=== PATIENT | female | born 1995 | race African-American/Black ===

== ENCOUNTER 2023-03-26 13:56 | Emergency (ER) | payer SELFPAY ==
[2023-03-26 14:11] VITALS: BP 100/76; PULSE 82; RESP 16; TEMP 36.8; O2SAT 99
--- NOTE | 2023-03-26 14:22 | ED.GENADULT ---
HPI - General Adult General Chief complaint: Headache Stated complaint: HEADACHE Source: patient, RN notes reviewed and old records reviewed Mode of arrival: ambulatory Limitations: no limitations History of Present Illness HPI narrative: 19-year-old female presents to [facility] with complaints frontal headache this started 1 week ago. Patient states he is taking Tylenol with no relief. Patient states headache is constant. Patient states has slight congestion and thinks might be a sinus infection but states it is not like her typical sinus infection. Patient denies any other symptoms. Related Data Allergies Allergy/AdvReac Type Severity Reaction Status Date / Time No Known Allergies Allergy Verified 03/26/23 14:10 Review of Systems Constitutional: Constitutional: Reports no additional constitutional complaints, Denies body ache(s), Denies chills, Denies fatigue, Denies fever(s) and Reports headache(s) Eyes: Eyes: Reports no additional eye complaints and Denies blurry vision ENT: Reports system reviewed and no additional complaints, except as documented, Denies vertigo, Denies dizziness, Denies ear discharge, Denies otalgia, Denies facial pain, Denies headache(s), Reports nasal congestion, Denies nasal discharge, Denies sinus pain, Denies sinus pressure and Denies sore throat Cardiovascular: Cardiovascular: Reports no additional cardiovascular complaints, Denies chest pain, Denies chest pain at rest, Denies rapid heart rate and Denies dyspnea Respiratory: Respiratory: Reports no additional respiratory complaints, Denies chest congestion, Denies cough, Denies pain on inspiration, Denies pain with cough and Denies dyspnea Gastrointestinal: Gastrointestinal: Denies abdominal pain, Denies diarrhea, Denies nausea and Denies vomiting Integumentary/Breasts: Skin/Breast: Denies rash Neurologic: Reports system reviewed and no additional complaints, except as documented, Denies vertigo, Denies dizziness and Reports headache(s) Endocrine: Endocrine: Denies fatigue PMFSH Comments At the time of my signature, I reviewed and agree with the nursing past medical, surgical, social, and family history. There is no relevant family history pertinent to the patient complaint. Exam Const: General: cooperative, healthy appearing, no acute distress and well nourished Nutritional Appearance: well nourished Orientation/consciousness: patient oriented x3 Limitations: no limitations HENMT: Head: normal to inspection and normocephalic Ears: external ears normal, TM's normal bilaterally, mastoids normal and Abnormal EAC present Face/Nose/Sinus: Normal external nose present, No nasal polyps present, Normal nasal mucous membranes and turbinates present, No nasal discharge present and normal facial exam Face and sinus: normal facial exam and sinus tenderness frontal Mouth: Yes Normal oral and palatal mucosa present, Yes oropharynx normal and Yes moist mucous membranes Throat: tonsils normal, uvula midline and no uvular edema Eyes: General: appearance normal, both eyes and all related structures Sclera: sclerae normal Pupils: Equal, round and reactive pupils present Resp: Effort & Inspection: normal respiratory effort, able to speak in complete sentences, no audible wheezes, no cough, no respiratory distress and no retractions Auscultation: clear to auscultation bilaterally, no crackles, no rales, no rhonchi and no wheezes Cardio: Rate: regular rate Rhythm: regular rhythm Skin: General skin exam: normal color and no rashes or lesions noted Neuro: General: patient oriented x3 Cranial nerves: Yes CN's II-XII intact bilaterally and Yes Equal, round and reactive pupils present Cognition (Neuro): normal cognition Speech: normal speech Gait exam (Neuro): Normal gait present Motor exam (neuro): 5/5 motor strength present throughout Sensory Exam: normal sensation Psych: Appearance: grossly normal Mental Status: mental status grossly normal Speec
== END 2023-03-26 14:59 | disposition home or self-care (01) ==
PROVIDERS: Emergency Provider Registered Nurse
DX: J01.10 Acute frontal sinusitis, unspecified (principal); G44.89 Other headache syndrome; Z20.822 Contact with and (suspected) exposure to COVID-19
CPT/HCPCS: 87426; 87804; 99213; G0463

== ENCOUNTER 2023-11-03 03:06 | Emergency (ER) | payer SELFPAY ==
--- NOTE | ~2023-11-03 | XR_ITS ---
Portable chest x-ray Comparison: None Clinical History: Cough Findings: Lungs are clear, without focal consolidation or pleural effusion. Cardiomediastinal silho uette is unremarkable. Bones and soft tissues are unremarkable. Impression: Normal chest. Reviewed, dictated and finalized at location M. Impression: Normal chest.
[2023-11-03 03:18] VITALS: BP 125/81; PULSE 94; RESP 16; TEMP 36.7; O2SAT 99
[2023-11-03 03:21] VITALS: O2SAT 99
--- NOTE | 2023-11-03 03:38 | ED.GENADULT ---
HPI - General Adult General Chief complaint: Upper Respiratory Infection Stated complaint: i've been coughing bad Time Seen by Provider: 11/03/23 03:08 History of Present Illness HPI narrative: Patient is 28-year-old female who presents to the emergency department this morning complaining of a cough that she has had for the past 3 days. States that she has been taking Tylenol with cough suppressant with no relief. Patient admits that the cough is dry and nonproductive but states that it is keeping her up at night. Denies any fevers or chills at home and denies any sick contacts. Denies any chest pain admits to mild shortness of breath. No additional symptoms or concerns at this time. Related Data Allergies Allergy/AdvReac Type Severity Reaction Status Date / Time No Known Allergies Allergy Verified 03/26/23 14:10 Review of Systems Review of Systems: All systems are reviewed and are negative unless stated otherwise in the HPI. Exam Narrative: General: Alert, awake, afebrile, in no acute distress. HEENT: PERRL, no rhinorrhea, no post nasal drip, oropharynx clear. Cardiovascular: Regular rate and rhythm, no murmurs, rubs or gallops, no peripheral edema. Respiratory: Clear to auscultation bilaterally, no tachypnea, no wheezing, no rhonchi, no rubs, no respiratory distress. Abdomen: Soft, nontender, nondistended, no rebound, no guarding, no peritoneal signs. Musculoskeletal: No joint swelling or deformity, normal muscle tone. Skin: No rashes or petechia, no signs of infection. Neurological: Alert and oriented to person, place, and time. Follows all commands. No focal deficits, speech is clear and fluent. Course Vital Signs Vital signs: Vital Signs Temperature 98.0 F 11/03/23 03:18 Pulse Rate 94 11/03/23 03:18 Respiratory Rate 16 11/03/23 03:18 Blood Pressure 125/81 11/03/23 03:18 Pulse Oximetry 99 11/03/23 03:18 Temperature 98.0 F 11/03/23 03:18 Pulse Rate 94 11/03/23 03:18 Respiratory Rate 16 11/03/23 03:18 Blood Pressure 125/81 11/03/23 03:18 Pulse Oximetry 99 11/03/23 03:21 Oxygen Delivery Room Air 11/03/23 03:21 Medical Decision Making MDM Narrative Medical decision making narrative: The patient was evaluated by myself in the emergency department. History is obtained from patient who is an independent historian and physical exam was performed. External medical records were reviewed at this time. Viral swabs obtained noted to be negative. Patient was administered 200 mg of oral Tessalon Perles for cough. Imaging studies obtained included CXR which was independently interpreted by me revealing no acute process, which is pending final radiology interpretation. Differential diagnosis considerations include acute viral syndrome, infectious process such as pneumonia. Comorbidities impacting this visit include none. I have evaluated and discussed social determinants of health with the patient that could potentially impact subsequent diagnosis and treatment plans. On repeat assessment of the patient, reevaluation revealed that the patient is doing well and is in no acute distress. Patient symptoms have improved since she arrived to our emergency department. Repeat vital signs were all reviewed and noted to be stable. Differential diagnosis and treatment plan were discussed with the patient at bedside. Patient agrees with discussion and after shared medical decision making agrees with discharge. All questions were answered to the patient's satisfaction. Patient will follow up with her PCP in 3-5 days. Patient was provided with strict return precautions and instructed to return to the emergency department if any new or worsening symptoms develop. The patient was discharged in stable condition. Vital Signs Vital Signs: Vital Signs Temperature 98.0 F 11/03/23 03:18 Pulse Rate 94 11/03/23 03:18 Respiratory Rate 16 11/03/23 03:18 Blood Pressure 125/81
[2023-11-03] MEDS: BENZONATATE 100 MG CAPSULE 200 MG PO (03:47)
[2023-11-03 04:03] LABS: Influenza A QL RT-PCR Negative (Negative); Influenza B QL RT-PCR Negative (Negative); SARS-CoV-2 RNA PCR Negative (Negative)
[2023-11-03 04:32] VITALS: BP 101/61; PULSE 72; RESP 15; TEMP 36.3; O2SAT 100
== END 2023-11-03 04:34 | disposition home or self-care (01) ==
PROVIDERS: Emergency Provider Emergency Medicine
DX: J06.9 Acute upper respiratory infection, unspecified (principal); Z20.822 Contact with and (suspected) exposure to COVID-19
CPT/HCPCS: 71045; 87636; 99283; A9270

== ENCOUNTER 2024-02-04 15:08 | Emergency (ER) | payer MEDICAID, SELFPAY ==
--- NOTE | 2024-02-04 15:13 | ED_ITS ---
HPI - Headache General Chief Complaint: Headache Stated Complaint: Headache,tingling sensation in legs, 18 weeks preg Time Seen by Provider: 02/04/24 15:14 Source: patient Mode of arrival: ambulatory Limitations: no limitations History of Present Illness HPI Narrative: Maria Guadalupe is a 28-year-old female patient presenting to the clinic today with complaints of headache behind her eyes, nasal congestion, and tingling sensation the left posterior thigh. Patient is 18 weeks . No known injury. Nasal congestion just started today but headache and thigh tingling started 2 days ago. Denies any abdominal pain, pelvic pain, vaginal discharge, or odor. Denies any urinary symptoms, nausea, or vomiting Related Data Home Medications ?Medication ?Instructions ?Recorded ?Confirmed ?Last Taken ?Type 02/04/24 Unknown History Allergies Allergy/AdvReac Type Severity Reaction Status Date / Time No Known Allergies Allergy Verified 02/04/24 15:21 Review of Systems Review of Systems: Pertinent positives per HPI. Patient denies any fever, chills, rash, visual changes, dizziness, sore throat, shortness of breath, chest pain, palpitations, nausea, vomiting, diarrhea, constipation, abdominal pain, or any urinary issues. PMFSH Comments At the time of my signature, I reviewed and agree with the nursing past medical, surgical, social, and family history. There is no relevant family history pertinent to the patient complaint. Exam Narrative: General: Well-developed, well nourished, in no apparent distress Head: Normocephalic, atraumatic Eyes: Pupils equally round and reactive to light bilaterally, EOM intact, sclera and conjunctive clear, no discharge, lids normal Ears: TMs intact and congested, ear canals clear, no drainage, grossly hearing normal. Nose: Nares patent, clear nasal discharge, no inflammation, no sinus tenderness. Mouth: Oropharynx without lesions or masses, good dentition, MMM. Tongue midline, even rise and fall of uvula Neck: Supple, trachea midline, no enlargement of anterior or posterior cervical nodes, no thyroid masses or goiter palpable. Cardio: Regular rate and rhythm, s1 and s2 normal, no murmur appreciated. Resp: Clear to auscultation bilaterally anteriorly and posteriorly, no rhonchi, rales, wheezing or rubs Musculoskeletal: No deformity, non-tender to palpation, grossly normal range of motion, muscle strength strong and equal, peripheral pulse strong, no edema, no cyanosis, normal gait and station Neuro: Alert and oriented x4 with normal speech, no focal deficits, cranial nerves I through XII intact, muscle strength 5 out of 5, sensation intact bilaterally, negative Romberg test Course Course Emergency Course: Portions of this record may have been created with voice recognition software. Level of Care: Express Care Visit Vital Signs Vital signs: Vital Signs Temperature 37.2 C 02/04/24 15:20 Pulse Rate 107 H 02/04/24 15:20 Respiratory Rate 16 02/04/24 15:20 Blood Pressure 102/70 02/04/24 15:20 Pulse Oximetry 100 02/04/24 15:20 Temperature 37.2 C 02/04/24 15:20 Pulse Rate 107 H 02/04/24 15:20 Respiratory Rate 16 02/04/24 15:20 Blood Pressure 102/70 02/04/24 15:20 Pulse Oximetry 100 02/04/24 15:20 Vital signs reviewed MDM - Headache MDM Narrative Medical decision making narrative: At the time of visit patient is resting comfortably on the exam table. Patient appears to be nontoxic. Labs: Urinalysis shows 2+ protein in 2+ ketones. Patient denies any UTI symptoms. COVID and influenza testing was performed. COVID test was positive. Influenza test was negative. heart tones were 140s Plan: I suspect patient has COVID, protein urea, dehydration, and paresthesia. Prescription for was sent to the pharmacy to cover for a urinary tract infection in with asymptomatic protein urea. Recommend contacting OBGYN for further consult/evaluation of treatment. Supportive measures were discussed with the patient and they voiced understanding discharge instructions and agrees to treatment plan. Return precautions reviewed Differential Diagnosis Differential diagnosis: Likely migraine, tension headache, subarachnoid hemorrhage, headache, meningitis, sinusitis and postconcussion syndrome Lab Data Labs: Lab Results 02/04/24 Range/Units 15:35 POC Urine Color Dark POC Urine Clarity Clear POC Urine pH 6.0 POC Ur Specif [place] 1.030 POC Urine Protein 2+ (Negative) POC Ur Glucose (UA) Negative (Negative) POC Urine Ketones 2+ (Negative) POC Urine Blood Negative (Negative) POC Urine Nitrite Negative (Negative) POC Urine Bilirubin Negative (Negative) POC Urine Urobilinogen 1.0 POC U Leukocyte Esteras Negative (Negative) POC Influenza A Ag Negative (Negative) POC Influenza B Ag Negative (Negative) POC SARS CoV-2 Ag Positive (Negative) Discharge Plan Discharge Clinical Impression: COVID-19, Asymptomatic proteinuria, Paresthesia, Dehydration Patient Disposition: Home, Self-Care Condition: Stable Instructions: Antibiotic Form, Dehydration (ED), Paresthesia (ED), How to Recover from COVID-19 at Home (ED) Additional Instructions: heart tones were 140 in the clinic today COVID testing was positive. Influenza testing was negative. Urinalysis shows 2+ ketones and 2+ protein. Recommend following up with OBGYN next week for [id number] send in prescription for Macrobid. Increase fluids and stay well hydrated Tylenol for pain/fever Flonase and OTC antihistamines as directed Vicks vapor rub to open sinuses Sinus rinses for congestion Cepacol spray, cough drops, throat lozenges, warm tea with honey/lemon, gargle salt water to soothe throat BRAT diet for diarrhea Clear liquids x 24 hours then advance as tolerated for nausea/vomiting Go to the ED if you develop a worsening in your condition- high fever not controlled by Tylenol or Motrin, dehydration, weakness, lethargy, shortness of breath, or chest pain. Follow up with your PCP in 3-5 days if symptoms persist. Approved Medications for Patients Cold and Flu Symptoms --Tylenol (regular or extra Strength) Fever (call if over 101?)--Tylenol (regular or extra Strength) Nasal Drainage/Head Congestion--Chlor-Trimeton, Sudafed, Tavist,Tylenol Sinus Cough--Robitussin, Delsym, Mucinex Sore Throat--Chloraseptic, Cepacol lozenges Allergy Symptoms--Bendryl, Zyrtec, Zyrtec D, Claritin, Claritin D Nausea--Emetrol, Vitamin B6 Tablets, Magnolia, Magnolia Tea, Preggie Pops, B- Suckers Constipation--Milk of Magnesia, Metamucil, Fiberall, Konsyl, Colace (Docusate Sodium) Heartburn--Maalox, Mylanta, TUMS, Prilosec OTC, Zantac, Tagament, Prevacid, Pepcid Diarrhea--Imodium, Kaopectate, Follow BRAT diet: bananas, rice, applesauce, tea/toast Hemorrhoids--Tucks Pads, Anusol, Preparation H, warm sitz baths Patient Language: Indonesian Prescriptions: New nitrofurantoin monohyd/m-cryst [Macrobid] 100 mg capsule 100 mg PO Q12H 5 Days Qty: 10 0RF Rx Instructions: must administer with a meal/food No Action amoxicillin-pot clavulanate 875-125 mg tablet 1 tablet PO Q12H 7 Days Qty: 14 0RF ibuprofen 600 mg tablet 600 mg PO TID PRN (Reason: pain) Qty: 14 0RF Follow-up/Referrals: UNKNOWN,DOCTOR [Primary Care Provider] - Stand Alone Forms: Work/School Release IP Time of Disposition: 15:46 Quality NIHSS Nursing Documentation ED NIHSS nursing documentation: reviewed/agree
[2024-02-04 15:20] VITALS: BP 102/70; PULSE 107; RESP 16; TEMP 37.2; O2SAT 100
[2024-02-04 15:37] LABS: EDCOVIDSCREEN Positive (Negative); EDINFLUASCREEN Negative (Negative); EDINFLUBSCREEN Negative (Negative); EDUAAPPEAR Clear; EDUABILI Negative (Negative); EDUABLOOD Negative (Negative); EDUACOLOR1 Dark; EDUAGLUCOSE Negative (Negative); EDUAKETONE 2+ (Negative); EDUALEUKO Negative (Negative); EDUANITRATE Negative (Negative); EDUAPROTEIN 2+ (Negative)
== END 2024-02-04 15:57 | disposition home or self-care (01) ==
PROVIDERS: Emergency Provider Nurse Practitioner Family
DX: U07.1 COVID-19 (principal); R80.9 Proteinuria, unspecified; R20.2 Paresthesia of skin; E86.0 Dehydration
CPT/HCPCS: 81003; 87086; 87426; 87804; 99213; G0463

== ENCOUNTER 2024-04-01 16:02 | Emergency (ER) | payer MEDICAID, SELFPAY ==
[2024-04-01 16:08] VITALS: BP 115/73; PULSE 71; RESP 16; TEMP 36.2; O2SAT 100
--- NOTE | 2024-04-01 17:01 | ED.GENADULT ---
HPI - General Adult General Chief complaint: Dental/Oral Stated complaint: Swollen Face Source: patient Mode of arrival: ambulatory Limitations: no limitations History of Present Illness HPI narrative: Patient presents for evaluation of right upper dental pain and facial swelling. Symptom onset 2 days ago. She denies any fever, chills, nausea, vomiting. She is not taking any medication to assist with her symptoms. Eating makes her symptoms worse. She is currently approximately 26 weeks gestation. She denies any vaginal bleeding or abdominal pain. She does not smoke. Related Data Home Medications ?Medication ?Instructions ?Recorded ?Confirmed ?Last Taken ?Type 02/04/24 Unknown History Allergies Allergy/AdvReac Type Severity Reaction Status Date / Time No Known Allergies Allergy Verified 04/01/24 16:12 Review of Systems Review of Systems: CONSTITUTIONAL: Denies fever, chills, or sweats. EYES: Denies visual changes, redness, or discharge. ENT: Reports right upper dental pain and right sided facial swelling. Denies rhinorrhea, congestion, sore throat, or otalgia. CARDIOVASCULAR: Denies chest pain, palpitations, or edema. RESPIRATORY: Denies cough or dyspnea. GASTROINTESTINAL: Denies abdominal pain, nausea, vomiting, or diarrhea. GENITOURINARY: Denies dysuria or hematuria. SKIN: Denies rash or itching. MUSCULOSKELETAL: Denies back pain, joint pain, or myalgia. NEUROLOGIC: Denies headache, numbness, dizziness, or weakness. PSYCHIATRIC: Denies anxiety or depression. PMFSH Past Medical History Medical History No pertinent past medical history Surgical History Surgical History (Reviewed 04/01/24 @ 17:03 by Jewel Dyer, [facility], ) No pertinent past surgical history Family History Family History (Reviewed 04/01/24 @ 17:03 by Jewel Dyer, [facility], ) Mother Family history non-contributory Social History Social History (Reviewed 04/01/24 @ 17:03 by Jewel Dyer [facility], ) Smoking status: Never smoker Substance use: never Gender identity (if verbalized by the patient): Female Spiritual care concerns: No Exam Narrative: GENERAL: Well-appearing, well-nourished, and in no acute distress. HEAD: atraumatic. There is right sided maxillary facial swelling EYES: PERRLA and EOMI. ENT: Nares clear, no rhinorrhea or epistaxis. Mucous membranes moist. There is a palpable area of fluctuance in the gumline adjacent to tooth #4 and #5. No tonsillar hypertrophy or exudate. Bilateral TMs pearly frost nonbulging NECK: Supple. No adenopathy or masses. No carotid bruits or JVD CHEST: Clear to auscultation. No respiratory distress. No wheezes rales or rhonchi HEART: Regular rate and rhythm. No murmur heard. Normal peripheral pulses. ABDOMEN: Soft, nontender, nondistended, normal active bowel sounds. EXTREMITIES: Normal range of motion. No edema. SKIN: Warm, dry, no rash. NEURO: No focal deficits. Alert and oriented x3. PSYCH: Normal mood and affect. Course Course Emergency Course: This is a 28-year-old female who presented for evaluation of right upper dental pain and facial swelling. She had an abscess on exam. This was drained with a 20 gauge needle. Patient was tearful upon completion of procedure but there were no complications. Will discharge with amoxicillin. He should follow up with dentist. She should go to the emergency department for worsening symptoms. She may take tylenol for pain. Pt in agreement with plan of care. Level of Care: Express Care Visit Vital Signs Vital signs: Vital Signs Temperature 36.2 C L 04/01/24 16:08 Pulse Rate 71 04/01/24 16:08 Respiratory Rate 16 04/01/24 16:08 Blood Pressure 115/73 04/01/24 16:08 Pulse Oximetry 100 04/01/24 16:08 Temperature 36.2 C L 04/01/24 16:08 Pulse Rate 71 04/01/24 16:08 Respiratory Rate 16 04/01/24 16:08 Blood Pressure 115/73 04/01/24 16:08 Pulse Oximetry 100 04/01/24 16:08 Procedures Abscess I/D gumline: Date of Incision: 04/01/24 Time of Incision: 17:05 Side (if applicable): right Technique: needle aspiration Amount of fluid expressed (mL): 2 Irrigation: No I&D Results: Pus and Blood Medical Decision Making Vital Signs Vital Signs: Vital Signs Temperature 36.2 C L 04/01/24 16:08 Pulse Rate 71 04/01/24 16:08 Respiratory Rate 16 04/01/24 16:08 Blood Pressure 115/73 04/01/24 16:08 Pulse Oximetry 100 04/01/24 16:08 Temperature 36.2 C L 04/01/24 16:08 Pulse Rate 71 04/01/24 16:08 Respiratory Rate 16 04/01/24 16:08 Blood Pressure 115/73 04/01/24 16:08 Pulse Oximetry 100 04/01/24 16:08 Discharge Plan Discharge Clinical Impression: Abscess, dental Patient Disposition: Home, Self-Care Condition: Stable Instructions: Antibiotic Form, Dental Abscess (ED) Patient Language: Tajik Prescriptions: New amoxicillin 500 mg capsule 500 mg PO TID Qty: 30 0RF No Action Follow-up/Referrals: Leyda Major DO [Physician] - Time of Disposition: 17:00
== END 2024-04-01 17:04 | disposition home or self-care (01) ==
PROVIDERS: Emergency Provider Nurse Practitioner
DX: O26.892 Other specified pregnancy related conditions, second trimester (principal); K04.7 Periapical abscess without sinus; Z3A.26 26 weeks gestation of pregnancy
CPT/HCPCS: 99213; G0463

== ENCOUNTER 2024-06-23 09:36 | Emergency (ER) | payer OTHER, SELFPAY ==
--- NOTE | 2024-06-23 09:39 | ED_ITS ---
HPI - General Adult General Chief complaint: Dental/Oral Stated complaint: Cold Symptoms/ Swollen Face Time Seen by Provider: 06/23/24 10:13 Source: patient, RN notes reviewed and old records reviewed Mode of arrival: ambulatory Limitations: no limitations History of Present Illness HPI narrative: 29-year-old female who is 1 week presents with left lower dental pain, swelling for 2 days as well as a runny nose and sinus congestion since last night. No treatment prior to arrival on either. Denies fevers. Patient currently breast feeding Related Data Home Medications Medication Instructions Recorded Confirmed Last Taken Type 02/04/24 Unknown History Allergies Allergy/AdvReac Type Severity Reaction Status Date / Time No Known Allergies Allergy Verified 06/23/24 09:52 Review of Systems Review of Systems: All systems reviewed & are unremarkable except as noted in HPI and below Constitutional: Constitutional: Reports no additional constitutional complaints ENT: Reports as per HPI, Reports dental pain, Reports nasal congestion and Reports nasal discharge Cardiovascular: Cardiovascular: Reports no additional cardiovascular complaints, Denies chest pain and Denies dyspnea Respiratory: Respiratory: Reports no additional respiratory complaints, Denies chest congestion, Denies cough and Denies dyspnea Musculoskeletal: Musculoskeletal: Reports no additional musculoskeletal complaints Integumentary/Breasts: Skin/Breast: Reports system reviewed and no additional complaints, except as docu PMFSH Past Medical History Medical History No pertinent past medical history Surgical History Surgical History No pertinent past surgical history Family History Family History Mother Family history non-contributory Social History Social History Smoking status: Never smoker Substance use: never Gender identity (if verbalized by the patient): Female Spiritual care concerns: No Comments At the time of my signature, I reviewed and agree with the nursing past medical, surgical, social, and family history. There is no relevant family history pertinent to the patient complaint. Exam Const: General: cooperative, healthy appearing, comfortable, no acute distress, well developed, alert and well nourished Nutritional Appearance: well nourished Orientation/consciousness: patient oriented x3 Limitations: no limitations HENMT: Head: normal to inspection Ears: hearing grossly normal bilaterally, external ears normal, TM's normal bilaterally, EAC's normal, mastoids normal and no periauricular adenopathy Face/Nose/Sinus: Normal external nose present, Normal nasal mucous membranes and turbinates present, Nasal discharge present clear bilateral and face symmetric Face and sinus: normal facial exam and face symmetric Mouth: Yes Normal oral and palatal mucosa present, Yes lip normal, Yes tongue normal and Yes moist mucous membranes Teeth and gingiva: abnormal tooth and associated gingiva lower left tender, with associated gingival edema, pulp exposed and other ( severe decay in the molars) Throat: posterior oropharynx normal, uvula midline, postnasal drainage and no uvular edema Eyes: General: appearance normal, both eyes and all related structures Alignment and Position: alignment normal Neck: Neck: normal visual inspection, full ROM, no lymphadenopathy and no meningeal signs Chest: Chest palpation & inspection: normal inspection of the chest Resp: Effort & Inspection: normal respiratory effort and able to speak in complete sentences Auscultation: clear to auscultation bilaterally, no crackles, no rales, no rhonchi and no wheezes Cardio: Rate: regular rate Skin: General skin exam: normal color and no rashes or lesions noted Neuro: General: patient oriented x3, gait normal, moves all extremities and no meningeal signs Cognition (Neuro): normal cognition Speech: normal speech Gait exam (Neuro): Normal gait present Extrem: General: normal to inspection, full ROM, capillary refill normal and normal gait Psych: Appearance: grossly normal and well kempt Mental Status: mental status grossly normal Speech and movement: Normal speech and movement present and Clear speech present Affect: normal affect Attitude: cooperative Course Course Level of Care: Express Care Visit Vital Signs Vital signs: Vital Signs Temperature 97.6 F 06/23/24 09:52 Pulse Rate 88 06/23/24 09:52 Respiratory Rate 16 06/23/24 09:52 Blood Pressure 118/85 06/23/24 09:52 Pulse Oximetry 99 06/23/24 09:52 Temperature 97.6 F 06/23/24 09:52 Pulse Rate 88 06/23/24 09:52 Respiratory Rate 16 06/23/24 09:52 Blood Pressure 118/85 06/23/24 09:52 Pulse Oximetry 99 06/23/24 09:52 Reviewed Medical Decision Making MDM Narrative Medical decision making narrative: patient sitting in exam room. Patient is nontoxic, vitals stable. Patient presents with runny nose, sinus congestion since last night. Exam consistent with viral sinusitis. Flu and COVID test is negative patient also has left lower dental decay, swelling probable abscess, will cover with antibiotic and she for dental providers given. Encourage patient to follow-up with a dental Provider as soon as possible. patient appropriate for outpatient treatment with close follow-up Discharge instructions reviewed with patient, as well as provided in writing per nursing staff. The instructions also include specific and strict return/GO TO THE ER as well as f/u information. All questions have been answered, and the patient deny any further questions with discharge and discharge plan. Some parts of this dictation were generated by voice recognition software and may contain typographical and/or grammatical inaccuracies. Differential Diagnosis Differential Diagnosis: dental decay, dental abscess, gingival abscess. URI, flu, COVID, sinusitis Medical Records Medical records reviewed: Yes I reviewed the external patient's medical records. Vital Signs Vital Signs: Vital Signs Temperature 97.6 F 06/23/24 09:52 Pulse Rate 88 06/23/24 09:52 Respiratory Rate 16 06/23/24 09:52 Blood Pressure 118/85 06/23/24 09:52 Pulse Oximetry 99 06/23/24 09:52 Temperature 97.6 F 06/23/24 09:52 Pulse Rate 88 06/23/24 09:52 Respiratory Rate 16 06/23/24 09:52 Blood Pressure 118/85 06/23/24 09:52 Pulse Oximetry 99 06/23/24 09:52 Reviewed Lab Data Lab results reviewed: Yes I reviewed the patient's lab results. Labs: Lab Results 06/23/24 Range/Units 10:34 POC Influenza A Ag Negative (Negative) POC Influenza B Ag Negative (Negative) POC SARS CoV-2 Ag Negative (Negative) Reviewed Critical Care Time Critical Care Time Critical Care Time: No Discharge Plan Discharge Clinical Impression: Dental abscess, Dental decay Sinusitis Qualifiers: Sinusitis location: unspecified location Chronicity: acute Recurrence: not specified as recurrent Qualified Code(s): J01.90 - Acute sinusitis, unspecified Patient Disposition: Home Condition: Stable Instructions: Antibiotic Form, Dental Abscess (ED), Sinusitis (ED) Additional Instructions: Finish the entire course of antibiotics & use the mouthwash. After every time you eat be sure to use salt water rinses. Apply ice to face to help with pain. Take Tylenol alternating with Motrin as needed for pain. You can alternate every 4 hours You need to follow-up with a dental provider as soon as possible for further evaluation and treatment. A list of dental providers has been given to you Follow up with a Primary Care Provider (PCP) about medical needs. A PCP can help keep you healthy by preventive medicine and screening. Go to the ER for New or worsening symptoms. Your rapid COVID test were negative Your rapid flu test was negative Your symptoms are likely due to a viral illness, which is not treated with antibiotics. Typically viral infections last 7-10 days, can linger for couple of weeks. It is very important to treat your symptoms. Drink plenty of water, Gatorade, Pedialyte, ice pops or Jell-O. -Alternate Tylenol and Motrin per package directions for fever or pain. You can alternate every 4 hours -Antihistamine medication such as Zyrtec/Claritin/Snehal during the day can help improve symptoms. -doing daily nasal irrigations can help relieve pressure your sinuses. Things like a Neti pot -Use Flonase twice a day for 5 days then daily to help reduce the inflammation and dry up your sinuses. -You can also use Mucinex. Be sure to drink plenty of water with this medication at least 8 ounces with every dose and it is important to drink 8 to 10 glasses of water per day. Water is a natural decongestant -Eat and drink things that are easy to swallow, like tea or soup, or popsicles. -Oral rinses such as: Salt water gargles and/or may use topical anesthetic (eg. Chloraseptic spray) or lozenges to relieve dryness or throat pain). -Frequent hand washing or hand fisheries inspector is one of the best ways to prevent spread of infection. -Using a vaporizer or humidifier at night will also help thin secretions and help with coughing up phlegm. -Follow up with primary care provider in 7-10 days if condition is not improving - For new or worsening symptoms go directly to the nearest ER Patient Language: Turkish Prescriptions: New amoxicillin 875 mg tablet 875 mg PO Q12H Qty: 20 0RF No Action Follow-up/Referrals: UNKNOWN,DOCTOR [Non-Staff] - Time of Disposition: 10:32
[2024-06-23 09:52] VITALS: BP 118/85; PULSE 88; RESP 16; TEMP 36.4; O2SAT 99
[2024-06-23 10:37] LABS: EDCOVIDSCREEN Negative (Negative); EDINFLUASCREEN Negative (Negative); EDINFLUBSCREEN Negative (Negative)
== END 2024-06-23 10:37 | disposition home or self-care (01) ==
PROVIDERS: Emergency Provider Nurse Practitioner
DX: K04.7 Periapical abscess without sinus (principal); K02.9 Dental caries, unspecified; J01.40 Acute pansinusitis, unspecified; Z20.822 Contact with and (suspected) exposure to COVID-19
CPT/HCPCS: 87426; 87804; 99213; G0463